=== PATIENT | female | born 1975 | race Hispanic/Latino ===

== ENCOUNTER 2020-06-04 10:18 | Day surgery (SDC) | payer OTHER ==
[2020-06-04 11:11] VITALS: BMI 30.7
[2020-06-04] MEDS ORDERED: hydrALAZINE 20 MG/ML VIAL SLOW IVP PRN (11:59)
[2020-06-04 12:03] LABS: Bilirubin Negative (Negative); Blood, Urine Negative (Negative); Clarity Clear (Clear); Glucose, Urine (Dipstick) Normal (Negative); Ketone, Urine Negative (Negative); Leukocyte Negative Leu/uL (Negative); Nitrite Negative (Negative); Protein, Urine (Dipstick) Negative (Neg-Trace); RBC/HPF 0-3 HPF (0-3); Specific Gravity, Urine 1.008 (1.002-1.036); Squamous Epithelial 0-3 HPF (0-3); Urobilinogen Normal mg/dL (Less than 2); WBC/HPF 0-3 HPF (0-3); pH, Urine 6.5 (5.0-9.0)
[2020-06-04 12:16] LABS: Bacteria/HPF 1+ HPF (None Seen)
--- NOTE | 2020-06-04 13:57 | PRG ---
DATE OF SERVICE: 06/04/2020 PRIMARY OB: Tom Wayne MD CHIEF COMPLAINT: Spotting. HISTORY OF PRESENT ILLNESS: The patient is a 45-year-old, G5, P3 female, with an intrauterine at 34 weeks and 4 days, presenting with 1-day history of spotting. She reports having spotting yesterday that has spontaneously dissipated and is having very little today. The patient also reports she has been having some low back pain. She denies fever, cough, headache, chest pain, shortness of breath, nausea, vomiting, diarrhea, constipation, hip problems, knee problems, or muscle weakness. She denies change in discharge other than what we have discussed or urinary urgency or frequency. PAST MEDICAL HISTORY: Negative. PAST SURGICAL HISTORY: She has had 3 prior C-sections and gallbladder removal. ALLERGIES: NO KNOWN DRUG ALLERGIES. MEDICATIONS: vitamins. SOCIAL HISTORY: Denies drug, alcohol, or tobacco use. 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 OB LABS: Unavailable at the time of dictation. REVIEW OF SYSTEMS: Per HPI. PHYSICAL EXAMINATION: VITAL SIGNS: Blood pressure 125/72, heart rate of 68, respiratory rate of 16, saturating 99% on room air, and temperature 98.4. GENERAL: She appears to be in no acute distress. She is alert, oriented, cooperative, and pleasant to interact with. HEENT: Head is normocephalic, atraumatic. LUNGS: Clear to auscultation bilaterally. HEART: Has regular rate and rhythm. ABDOMEN: Gravid, soft, nontender. EXTREMITIES: Nontender, nonedematous. MUSCULOSKELETAL: She has very significant SI joint tenderness bilaterally to palpation. : Vulva is without masses, lesions, or erythema. There is no blood staining or bleeding visible. On speculum exam, the patient has about 3 mL of mucousy dark, mucousy bloody discharge that looks like old blood, dark coffee-ground in color. Cervix is visibly closed. There is no other discharge visible. On digital exam, cervix was closed and thick. DIAGNOSTIC DATA: heart tracing shows the fetus with a baseline in the 120s with moderate long-term variability, positive 15 x 15 accelerations, no decelerations. Contractions are present, but not felt by the patient. LABORATORY DATA: Urinalysis was returned positive for 1+ bacteria, negative squamous cells, negative white blood cells, negative red blood cells, negative leukocyte esterase, negative nitrites. VP3 results are still pending. ASSESSMENT AND PLAN: The patient is a 45-year-old multiparous female with an intrauterine at 34 weeks and 4 days who has had some isolated spotting. This seems to have resolved on its own. The remaining evidence is old dark blood. There is no active bleeding present. Of note, hospital records show her blood type is O positive. Anticipate patient discharge home with Keflex for UTI and once her VP3 is back, we will treat as indicated if necessary. VP3 still not available. Pt being discharged home. Pt will call in 2hr for results. Job ID: [id number] [facility]
== END 2020-06-04 14:05 | disposition home or self-care (01) ==
LOC: L&D/OP 10:18
PROVIDERS: ATTEND Family Medicine
DX: O26.853 Spotting complicating pregnancy, third trimester (principal); O99.891 Other specified diseases and conditions complicating pregnancy; M54.5 Low back pain; O23.43 Unspecified infection of urinary tract in pregnancy, third trimester; O09.523 Supervision of elderly multigravida, third trimester; Z3A.34 34 weeks gestation of pregnancy
CPT/HCPCS: 81003; 87480; 87510; 87660; 99284

== ENCOUNTER 2020-06-22 01:13 | Day surgery (SDC) | payer OTHER ==
[2020-06-22 01:45] VITALS: BMI 31.6
[2020-06-22] MEDS ORDERED: hydrALAZINE 20 MG/ML VIAL SLOW IVP PRN (01:50)
--- NOTE | 2020-06-22 02:02 | PDOC.BPN ---
- Brief Progress Note Seen at bedside. IVF started. Possible small marginal separation discussed but clinically stable with no active VB. No blood at perineu,m. Cough/valsalva with no VB or LOF
--- NOTE | 2020-06-22 02:45 | HP ---
TIME: 0152 LOCATION: Labor and Delivery Triage, same day of service. Patient is in triage B. CHIEF COMPLAINT: Vaginal bleeding x1 that is now resolved. HISTORY OF PRESENT ILLNESS: This is a 45-year-old, G6, P3, with 3 previous births, who stated that she had a small episode of vaginal bleeding at about 2300 while she was sitting down. She describes it as bright red, but no abdominal pain and no history of abdominal injury. She denies recent intercourse. She denies any recent trauma, contractions, or decreased in movement. She denies any fever or leakage of fluid. She states that this is pretty much stopped now and it was isolated. REVIEW OF SYSTEMS: GENERAL: There is a denial of cough or fever. RESPIRATORY: No shortness of breath. CHEST/CARDIOVASCULAR: No chest pain. NEURO: No focal neuro deficits. GI: No diarrhea. : No dysuria. PAST MEDICAL HISTORY: History of depression, but she is not on medications. MEDICATIONS: vitamins. ALLERGIES: NONE. SURGICAL HISTORY: A gallbladder in 2003 and C-sections x3. She has a repeat scheduled with Dr. Wayne on 07/09. SOCIAL HISTORY: Negative for alcohol, tobacco, or drug use. PHYSICAL EXAMINATION: VITAL SIGNS: Blood pressure is 134/79, pulse is 75, and temperature is 98.2. GENERAL: She is in no acute distress. ABDOMEN: Soft, nontender. Uterus is soft without hypertonus and size appropriate. PELVIS: On perineal inspection, there is no gross evidence of bleeding or leakage of fluid. nonstress test. Nonstress test was done for complaint of vaginal bleeding. It is reactive with moderate variability and accelerations. There are no pathological decelerations. There is some uterine irritability. INTERVENTIONS ORDERED: I have ordered 1 L LR. LABORATORY DATA: Her blood type is Rh positive per record. ASSESSMENT: This is a patient of advanced maternal age, who is at 37 weeks and 1 day with an EDC of 07/12, placing her at early term with one episode of vaginal bleeding. This may be a small marginal separation, but there is no acute evidence of or maternal compromise. She was also seen earlier in the month for the same complaint and also discharged home. There is no evidence of clinical abruption at this time. PLAN: 1. Reassurance. 2. IV fluid hydration. 3. We will check her again in an hour to see if there is any further bleeding. 4. No history or recent intercourse or trauma, so I do not believe that is the issue. 5. I will have her followup on Thursday for blood pressure check and for followup. Job ID: [id number]
== END 2020-06-22 02:57 | disposition home or self-care (01) ==
LOC: L&D/OP 01:13
PROVIDERS: ATTEND Family Medicine
DX: O46.93 Antepartum hemorrhage, unspecified, third trimester (principal); O34.219 Maternal care for unspecified type scar from previous cesarean delivery; O09.523 Supervision of elderly multigravida, third trimester; Z3A.37 37 weeks gestation of pregnancy

== ENCOUNTER 2020-07-06 09:01 | Outpatient (CLI) | payer OTHER ==
[2020-07-06 23:04] LABS: SARS-CoV-2 MS2 Positive; SARS-CoV-2 N Gene Negative; SARS-CoV-2 S Gene Negative; SARS-CoV-2 by NAA Not Detected (NotDetected); SARS-CoV-2 orf1ab Negative
== END 2020-07-06 09:02 | disposition home or self-care (01) ==
LOC: LABBT 09:01
PROVIDERS: ATTEND Family Medicine
DX: Z01.812 Encounter for preprocedural laboratory examination (principal); Z20.828 Contact with and (suspected) exposure to other viral communicable diseases
CPT/HCPCS: 87635; U0003

== ENCOUNTER 2020-07-08 12:30 | Inpatient (IN) | payer OTHER ==
[2020-07-08 13:09] VITALS: BMI 32.2
[2020-07-08] MEDS ORDERED: hydrALAZINE 20 MG/ML VIAL SLOW IVP PRN ×3 (13:26→16:26)
--- NOTE | 2020-07-08 13:38 | PDOC.LDHP ---
Labor and Delivery H&P Chief complaint: loss of fluid HPI: 45 y/o @ 39.3 wks presents to L&D with suspected LOF that presented with a gush @ 10:30 this morning. Characterized as white and bloody "discharge." Pt saw a small amount of blood present as well. Pt was walking toward the bathroom when she felt this fluid. No leakage since that one gush. reports good movements CTX every 10 minutes or so since 10:30 PCP: Dr. Wayne Current gestational age (weeks): 39 (39.3) Due date: 07/12/20 Grav: 6 Para: 3 OB History Details: three previous c-sections no complications with this O Positive AB neg NIPT low risk RPR, HIV, Hep B NR RI GBS neg Current complications: other (AMA) Abnormal US findings: No Past Medical History: MDD Current medications: pre-keyshawn vitamins Previous surgical history: low tranverse CS (X3) Allergies/Adverse Reactions: Allergies Allergy/AdvReac Type Severity Reaction Status Date / Time No Known Allergies Allergy Verified 06/22/20 01:40 Social history: none - Physical Exam Abnormal vital signs: Elevated BP, 140s-156/70s General: NAD, resting, breathing through contractions Heart: RRR Lungs: nonlabored breathing Abdomen: gravid Extremeties: no edema FHT: category 1 (125 baseline, mod variability, and acels present) - Vaginal Exam cm dilated: 1 (Amnisure positive ) Effacement: 0% Station: -3 - OB Labs Blood type: O RH: positive Antibody Screen: negative HIV: negative RPR: negative HEPSAg: negative 3 hour GTT: 95, 177, 120, 93 GBS: negative Additional Labs: COVID-19 + in January PAP ASCUS 01/20/20 - Assessment 45 y/o @ 39.3 weeks will admit to L&D due to + amnisure and ROM with previous X3. Ctx every 7-[address] Wayne out of town. Will proceed with c/s with Dr. Young. Assessment: sIUP- cat 1 strip, ctx Q7-10 min. Posterior placenta on 06/08/[address] Wayne notes. No Previa on sono. AMA Previous X3 Plan discussed with Dr. Young who is leading the decisions made for this patient, and is in agreement with above stated plan. - Plan Plan: admit to L&D
--- NOTE | 2020-07-08 14:00 | PDOC.BPN ---
- Brief Progress Note Cx 1cm/thick.high per RN. Bedside sono: ceph with grossly normal fluid visually labs pending Recheck CX in 2 hrs
[2020-07-08] MEDS ORDERED: Ondansetron PF 4 MG/2 ML Vial IVP PRN ×2 (14:01→16:38)
[2020-07-08] MEDS ORDERED: Butorphanol Tartrate 1 MG/ML VIAL SLOW IVP PRN (14:01)
[2020-07-08] MEDS ORDERED: Bicitra 30 ML UDCUP PO PRN (14:01)
[2020-07-08] MEDS ORDERED: Promethazine HCl 25 MG/ML VIAL IM PRN ×2 (14:01→16:38)
[2020-07-08] MEDS ORDERED: Famotidine/PF 20 mg/2ml Vial SLOW IVP PRN (14:01)
[2020-07-08 14:02] LABS: Amnisure Test RUPTURE DETECTED (No Rupture)
[2020-07-08 14:03] LABS: Amnisure Internal Control QC ACCEPTABLE (ACCEPTABLE)
--- NOTE | 2020-07-08 14:12 | PDOC.BPN ---
- Brief Progress Note CS preop note: Amnisure was positive. With prior visit on 06/22, this complaint of vag DSCH, and irreg CTX with HTN (PIH)...we will proceed with repeat CS this afternoon, rather than tomorrow as [id number] with Dr Wayne. I have tigertexed Dr Wayne to update him. TIMING: Currently, there is another patient in L&D with FHR decelerations who may need CS. As Marci is stable at this point and was 1cm, plan is to allow the other labor patient ( Dilma) to deliver first. This plan was made with me and Deana, the patients RN as we manage the L&D floor.
[2020-07-08] MEDS ORDERED: CEFAZOLIN 2 GM in Premix Bag 1 BAG IVPB SCH (14:15)
[2020-07-08 14:24] LABS: #Lymphocytes 1.8 thou/uL (1.20-3.40); #Monocytes 0.4 thou/uL (0.11-0.59); #Neutrophils 5.1 thou/uL (1.40-6.50); %Basophils 0.2 % (0.0-1.0); %Eosinophils 0.4 % (0.0-10.0); %Lymphocytes 24.2 % (21.0-51.0); %Monocytes 5.9 % (0.0-10.0); %Neutrophils 69.3 % (42.0-75.0); Mean Corpuscular HGB CONC 33.7 g/dL (32.0-36.0); Mean Corpuscular Hemoglobin 29.8 pg (27.0-31.0); Mean Corpuscular Volume 88.5 fL (78.0-98.0); Mean Platelet Volume 9.1 fL (7.4-10.4); Platelet Count 242 thou/uL (130-400); RBC Distribution Width 13.6 % (11.5-14.5); Red Blood Cell (RBC) Count 4.04 mill/uL (4.20-5.40); White Blood Cell (WBC) Count 7.3 thou/uL (4.8-10.8)
--- NOTE | 2020-07-08 14:29 | PDOC.OPDEL ---
OB Operative/Delivery Note Delivery Dr/Surgeon: Nancy Assist: Peter Milton (M3); Young: Attending Pre-Delivery Diagnosis: active labor Procedure/Post Delivery Dx: spontaneous vaginal delivery Weeks gestation: 38 Anesthesia: epidural - Findings A Sex: male - 1 min: 8 (Verbal, not final) - 5 min: 9 (Verbal, not final) - Additional Findings/Plan Placenta delivered: spontaneous (feliciano at 1419; babay born at 1416. Baby was born with Dr Khalil as I was entering room as I was in trigae for another patient.) Estimated blood loss: 400 at max Compilations/Other Findings: Initial brief PEARL atony RX with I/O Cath for about 100ml. Cytotec 800mucg placed CA as they were already brought to room and opened. Total EBL is at max 300- 400ml. Cytotec placed CA to be conservative. Baby vigorous male, 3VC no lacs
[2020-07-08 14:44] LABS: ALT (SGPT) 10 U/L (8-55); AST (SGOT) 17 U/L (5-34); Alkaline Phosphatase 172 U/L (40-110); Anion Gap 14 mmol/L (10-20); BUN (Urea Nitrogen) 13 mg/dL (7.0-18.7); Bilirubin, Total 0.2 mg/dL (0.2-1.2); Calc. Creatinine Clearance 133 mL/min (70-130); Calcium 8.8 mg/dL (7.8-10.44); Carbon Dioxide 20 mmol/L (22-29); Chloride 106 mmol/L (98-107); Globulin 3.1 g/dL (2.4-3.5); Glucose 96 mg/dL (70-105); Potassium 4.2 mmol/L (3.5-5.1); Protein, Total 6.1 g/dL (6.0-8.3); Sodium 136 mmol/L (136-145)
--- NOTE | 2020-07-08 14:44 | PDOC.BPN ---
- Brief Progress Note CS PENDING: Still awaiting CS availability. DX: PIH, PROM, prior CS x3, full term Anesthesia aware.
[2020-07-08] MEDS ORDERED: PHENYLEPHRINE-NS 100 MCG/ML 10 ML SYRINGE ONE (14:53)
[2020-07-08] MEDS ORDERED: Ondansetron PF 4 MG/2 ML Vial ONE (14:53)
[2020-07-08] MEDS ORDERED: Morphine PF 10 MG/10 ML VIAL ONE (14:53)
[2020-07-08] MEDS ORDERED: Oxytocin 10 UNITS/ML VIAL ONE ×3 (14:53→16:24)
[2020-07-08 15:02] LABS: Syphilis Antibody Nonreactive (Nonreactive); Syphilis Antibody Index 0.04 S/CO (<1.00 Non-Reactive)
--- NOTE | 2020-07-08 15:10 | HP ---
TIME OF EVALUATION: Roughly 1330. LOCATION: Labor and Delivery Triage. CHIEF COMPLAINT: Thick, white discharge and possible contractions at 39 weeks. HISTORY OF PRESENT ILLNESS: This is a 45-year-old 6, para 3, who is at 39 weeks and 3 days here for vaginal thick white discharge and possible contractions. I saw her on June 22 for one episode of vaginal bleeding that had resolved by the time that she was here and she had otherwise reassuring and maternal status, we sent her home. At that time, she did have a blood pressure that was noted at around high 130s over 70s, but she was asymptomatic from any blood pressure issues then. Today, she also denies any headache, visual changes or right upper quadrant pain or reflux symptoms. She has good movement and denies any wet underwear or leakage of fluid or gush of fluid. She no longer states any active vaginal bleeding. She has not had any trauma. She stated that she is scheduled for a tomorrow at noon with Dr. Wayne, who was her provider. She also states that she had a recent COVID screen, which I do see in the computer from 07/06/2020 and that was negative. REVIEW OF SYSTEMS: GENERAL: She denies fever or shortness of breath or cough. CHEST: She denies any chest pain or dyspnea. GI: No constipation or diarrhea. OB: She has good movement and denies any active vaginal bleeding. EXTREMITIES: Lower extremities, she denies any pain or swelling in her lower extremities. PAST MEDICAL HISTORY: She does have a history of depression and she is not on any medications and she states she is otherwise stable. MEDICATIONS: vitamins. ALLERGINS: None OB HISTORY: CS x 3, no issues, no HX transfusion PAST SURGICAL HISTORY: Her three previous sections. She also has a history of gallbladder removal in 2003. Again, she was scheduled for a repeat tomorrow at around noon. SOCIAL HISTORY: Negative for alcohol, tobacco, or drug use. PHYSICAL EXAMINATION: GENERAL: She is in no acute distress and does not appear to be in active labor. VITAL SIGNS: On vital sign review, her blood pressure is 132/75, but initially was 145/85 and then 158/74. Her heart rate is in the 60s to 70s. She is afebrile. ABDOMEN: Soft and nontender and no palpable contractions. Cervical exam is currently pending. On vaginal exam performed by Dr. Nancy Khalil, there is some thick white discharge, but it does not look like amniotic fluid. MONITOR: The tracing has been checked and heart tones are in the 130s to 140s with moderate variability. There are contractions on the tocodynamometer and the contractions are about every 7 to 10 minutes, at the quickest to every about 15 minutes at the latest. INTERVENTIONS ORDERED: We have ordered an AmniSure screen to make sure that the discharge is not fluid. We have also ordered a vaginitis panel 3. We have also ordered a CMP and a CBC and a urine fqunofu-oi-eykheaelol ratio. ASSESSMENT: This is a patient with advanced maternal age, who is 45, who has had three previous sections at full term, at 39 weeks and 3 days. She now has evidence of -induced hypertension/preeclampsia. PLAN: 1. AmniSure pending. 2. VP3. If she is found to have bacterial vaginosis and we will administer Flagyl perioperatively to decrease the risk of metritis. We have ordered [facility] laboratory evaluation per [facility]. 3. I have also discussed the case with Dr. Wayne, but he is unavailable and will not be around until about 09:00 p.m. viktoriya (2100). If she continues to contract, we will have to proceed with today prior to her scheduled time of tomorrow. For now, she will be on strict labor checks, although there is a high chance that we will simply proceed with her after the 8-hour mina from her last oral intake. Job ID: [id number] [facility]
[2020-07-08] MEDS ORDERED: Azithromycin 500 MG VIAL ONE (15:30)
[2020-07-08] MEDS ORDERED: Lanolin Ointment 7 GM TUBE TOP PRN (16:26)
[2020-07-08] MEDS ORDERED: Acetaminophen/Codeine 30-300mg Tablet PO PRN (16:26)
--- NOTE | 2020-07-08 16:37 | PDOC.BPN ---
- Brief Progress Note OP NOTE: Repeat LTCS and DEIDRE. baby vigorous Surgeon: Hector MelendezPrincipal Quality Engineer: Remi Other assist: Yoan (m3) Demetrius on skin Op Note Dictated by me
[2020-07-08] MEDS ORDERED: Ondansetron HCl/PF 4 MG/2 ML Vial IVP PRN (16:38)
[2020-07-08] MEDS ORDERED: diphenhydrAMINE 50 MG/ML VIAL IVP PRN (16:38)
[2020-07-08] MEDS ORDERED: Naloxone HCl 0.4 mg/ml Vial IVP PRN ×2 (16:38)
[2020-07-08] MEDS ORDERED: Meperidine HCl/PF 25 MG/ML VIAL SLOW IVP PRN (16:38)
[2020-07-08] MEDS ORDERED: L&D-Morphine 4 MG/ML VIAL SLOW IVP PRN (16:38)
[2020-07-08] MEDS ORDERED: HYDROmorphone 2 MG/ML VIAL SLOW IVP PRN (16:38)
[2020-07-08] MEDS ORDERED: Ketorolac Tromethamine 30 MG/ML VIAL IVP PRN (16:38)
[2020-07-08] MEDS ORDERED: Naloxone HCl 0.4 mg/ml Vial IV PRN (16:38)
[2020-07-08] MEDS ORDERED: Promethazine HCl 25 MG SUPP PR PRN (16:38)
[2020-07-08] MEDS ORDERED: Communication Order-Pharmacy FS SCH (16:45)
[2020-07-08] MEDS ORDERED: Ketorolac Tromethamine 30 MG/ML VIAL IVP SCH (16:45)
--- NOTE | 2020-07-08 16:57 | PDOC.BPN ---
- Brief Progress Note VP3 negative will not require further antibiotics.
--- NOTE | 2020-07-08 17:19 | OP ---
DATE OF PROCEDURE: 07/08/2020 SECTION NOTE (REPEAT) PREOPERATIVE DIAGNOSES: This is a patient at term (full term) with a history of 3 previous sections, who was in early labor and has pre-labor rupture of membranes. She also has elevated blood pressures concerning for mild preeclampsia. POSTOPERATIVE DIAGNOSES: 1. This is a patient at term (full term) with a history of 3 previous sections, who was in early labor and has pre-labor rupture of membranes. She also has elevated blood pressures concerning for mild preeclampsia. 2. Abdominopelvic adhesions from previous surgery. PROCEDURES: 1. Repeat low transverse section via Pfannenstiel skin incision. 2. Two-layer uterine closure. ASSISTANTS: 1. Nancy Khalil. 2. Peter Milton (M3). ANESTHESIA: Spinal. ANTIBIOTICS: Ancef and Zithromax per protocol. INTRAVENOUS FLUIDS: About 2 L crystalloid. ESTIMATED BLOOD LOSS: About 700 mL, although the QBL is still pending. URINE OUTPUT: By Rogers clear urine without evidence of bladder violation. COMPLICATIONS: Patient did have some thick and filmy abdominopelvic adhesions from the uterus, anterior serosa, to the anterior fascia. However, there was no real complications and lysing these. There was a small area of bleeding at the patient's left perivesicular/retroperitoneal area that we entered upon lysis of adhesions, but this was rendered hemostatic with a single stitch of 2-0 chromic. There was no evidence that this was by the ureter or other deep vessels. FINDINGS: 1. The baby was born vigorous without complication. There was no nuchal cord. Baby was cephalic. There was clear fluid at ruptured membranes. 2. There was hemostasis post uterine repair, which was in 2 layers. DISPOSITION: To recovery. I would continue to monitor blood pressures, which were stable and within normal limits. DESCRIPTION OF PROCEDURE: After proper informed consent was explained to the patient and after reviewing with her the indication for the repeat (which was ruptured membranes and elevated blood pressure at full-term), she was placed under spinal anesthetic block in the OR in Labor and Delivery. There was a Pfannenstiel scar that was noted and this was excised using a scalpel without complication. Next, Bovie cautery was used to dissect the subcutaneous tissue down to the level of the fascia. Fascia was identified, cleaned off any overlying fat, and the fascia was identified. Fascia was entered using Bovie cautery on cut mode in a transverse fashion. Care was taken to avoid underlying structures. It was noted that the fascia was somewhat attenuated due to the previous surgery. We did notice that there was a lot of adhesions from the anterior uterine serosa to the anterior fascial lining. There was one big band of adhesion which was pretty thick. We put 2 clamps across this and we transected it and suture ligated it for hemostasis. This was in the lower uterine segment to the fascia, but this was transected without complication. There was no evidence of visceral organs being involved in this adhesion. As we did lysis of adhesions to get to the lower uterine segment, we did open up a small window of retroperitoneum on the patient's left perivesicular area that has a small amount of oozing, but this was rendered hemostatic with pressure and a single stitch of a bleeding vessel with 2-0 chromic. We then performed a low transverse hysterotomy. Baby was delivered in an atraumatic fashion. It was important to note that because of the tight hysterotomy due to the adhesions, I initially had placed a vacuum on the baby's head, but the baby's head delivered with fundal pressure from the health care legal assistant without the use of vacuum. Again while the vacuum cup was placed on the baby's head, vacuum traction was not applied nor was vacuum pressure. The baby was then delivered without incident or complication. It was important to note that prior to the hysterotomy, we had called Dr. Barahona, who was the on-call Family Medicine OB provider on-call just to be on standby in case we got into some bleeding. So, he was in the room, but not scrubbed, after the baby was delivered. The placenta was then delivered and it was intact. Hysterotomy was closed in 2 layers. The first was with 0 chromic in a running locking fashion. The second was with #1 Monocryl in a running nonlocking fashion. We then vigorously and diligently inspected all the sidewall areas again and after being confident that we had no further bleeding and that we were away from the bladder, we irrigated and began the abdominal closure. We had discussed checking the bladder integrity by doing milk installation, but because the bladder was way beyond our level of repair, we did not feel that this was required. We then closed the fascia using 0 PDS suture x2 in a running nonlocking fashion, and 2 sutures were used for this and tied in the middle. Copious irrigation was then done of subcutaneous tissue and subcutaneous tissue was closed with 3-0 plain gut. Skin edges were closed with trevor. It was important to note that prior to the fascial closure, we did put a little bit of Avitene in the patient's left perivesicular retroperitoneal window just for added hemostasis. No complications were noted. The patient was very stable. It was important to note that we were about 6 minutes delayed in doing this because we notice that we did not have the VPIII sent down to the lab, which was ordered while the patient was in triage. This was ordered because she had a complaint of discharge and I did not want to miss the diagnosis of BV, at which time I would give her Flagyl. So, we waited for the VPIII swab to arrive in the OR and we collected the swab prior to starting the case underneath the sterile drape. I have checked the results of this VPIII, but as of now, it was only received and not yet resulted. It was important to note that she does have her CBC, which was done in triage, which showed a hematocrit of 35 with normal platelets. Her AST and ALT were also normal. Creatinine was normal at 0.58, so there was no evidence of lab abnormality. Job ID: [id number]
[2020-07-08 22:30] LABS: HBSAg Index 0.15 S/CO (0-0.99); HIV (1/2) Antibody/Antigen Non-Reactive (NonReactive); HIV 1/2 INDEX 0.13 S/CO (<1.00); Hep B Surf Ag Non-Reactive S/CO (NonReactive)
[2020-07-08] MEDS: Ibuprofen 800 MG TAB PO SCH (23:31)
[2020-07-08] MEDS: Docusate Calcium (SURFAK) 240 MG CAP PO SCH (23:31)
[2020-07-09] MEDS: Lactated Ringer's 1,000 ML IV SCH ×4 (00:08→21:32)
[2020-07-09 05:38] LABS: Hemoglobin 10.6 g/dL (12.0-16.0); Mean Corpuscular HGB CONC 34.2 g/dL (32.0-36.0); Mean Corpuscular Hemoglobin 30.4 pg (27.0-31.0); Mean Corpuscular Volume 88.7 fL (78.0-98.0); Mean Platelet Volume 8.9 fL (7.4-10.4); Platelet Count 183 thou/uL (130-400); RBC Distribution Width 13.3 % (11.5-14.5); White Blood Cell (WBC) Count 7.7 thou/uL (4.8-10.8)
[2020-07-09] MEDS: Ibuprofen 800 MG TAB PO SCH ×3 (06:24→21:40)
[2020-07-09] MEDS ORDERED: Measles/Mumps/Rubella 10 MCG/0.5 ML VIAL SC ONE (09:00)
[2020-07-09] MEDS ORDERED: Varicella virus, LIVE 0.5 ML VIAL SC ONE (09:00)
[2020-07-09] MEDS ORDERED: Adacel (T-DAP) 0.5 ML SYRINGE IM ONE (09:00)
[2020-07-09] MEDS: Docusate Calcium (SURFAK) 240 MG CAP PO SCH ×2 (09:30→21:39)
[2020-07-09] MEDS: Prenatal Vitamin 1 TAB PO SCH (09:30)
[2020-07-09] MEDS: Acetaminophen/Codeine 30-300mg Tablet PO PRN ×2 (09:30→13:42)
[2020-07-09] MEDS ORDERED: diphenhydrAMINE 25 MG CAP PO SCH (19:30)
[2020-07-10] MEDS: Ibuprofen 800 MG TAB PO SCH ×3 (05:26→21:34)
[2020-07-10] MEDS: Lactated Ringer's 1,000 ML IV SCH ×3 (06:26→22:49)
[2020-07-10] MEDS: Docusate Calcium (SURFAK) 240 MG CAP PO SCH ×2 (08:55→21:34)
[2020-07-10] MEDS: Prenatal Vitamin 1 TAB PO SCH (08:55)
[2020-07-10] MEDS: Acetaminophen/Codeine 30-300mg Tablet PO PRN ×3 (08:57→19:53)
[2020-07-10] MEDS: cloNIDine 0.1 MG TAB PO PRN (19:51)
[2020-07-11] MEDS: cloNIDine 0.1 MG TAB PO PRN (05:51)
[2020-07-11] MEDS: Ibuprofen 800 MG TAB PO SCH (05:51)
[2020-07-11 08:14] VITALS: BP 133/73; TEMP 97.9
[2020-07-11] MEDS: Docusate Calcium (SURFAK) 240 MG CAP PO SCH (09:02)
[2020-07-11] MEDS: Acetaminophen/Codeine 30-300mg Tablet PO PRN (09:02)
[2020-07-11] MEDS: Prenatal Vitamin 1 TAB PO SCH (09:02)
[2020-07-11] MEDS: Lactated Ringer's 1,000 ML IV SCH (09:12)
== END 2020-07-11 11:00 | disposition home or self-care (01) | DRG 788 ==
LOC: L&D/OP 12:30 → L&D 14:01 → 3SW 19:57
PROVIDERS: ADMIT Family Medicine; ATTEND Family Medicine
PROC: 10D00Z1 Extraction of Products of Conception, Low, Open Approach (ICD-10-PCS; principal; 2020-07-08)
DX: O34.219 Maternal care for unspecified type scar from previous cesarean delivery (principal); O13.4 Gestational [pregnancy-induced] hypertension without significant proteinuria, complicating childbirth; Z3A.39 39 weeks gestation of pregnancy; Z37.0 Single live birth
CPT/HCPCS: 36415; 51702; 80053; 84112; 85025; 85027; 86780; 86850; 86900; 86901; 87340; 87389; 87480; 87510; 87660; 90715; 99285; J0456; J0690; J1200; J2270; J2405; Q0163